=== PATIENT | male | born 1955 | race Caucasian/White ===

== ENCOUNTER 2017-04-17 11:35 | Emergency (ER) | payer BC ==
[~2017-04-17] VITALS: Ht 190.5 cm; Wt 85.0 kg
[~2017-04-17 11:35] MED LIST: ASCA500 PO; BIOTIN; MULT-506 PO; PSEU30TA20 PO
[2017-04-17 11:38] VITALS: Ht 190.5 cm; Wt 85.0 kg
[2017-04-17] MEDS ORDERED: TRAMADOL HCL 50 MG TAB PO STA (11:55)
[2017-04-17] MEDS ORDERED: SODIUM CHLORIDE 0.9% 1000ML 1,000 ML IV STA (11:55)
[2017-04-17] MEDS ORDERED: DiphenhydrAMINE HCL 50 MG/ML VIAL IV STA (11:55)
[2017-04-17] MEDS ORDERED: DEXAMETHASONE SOD INJ 4 MG/ML VIAL IV STA (11:55)
[2017-04-17 12:20] LABS: BASO % 0.2 %; BASO ABS # 0.02 K/uL (0-0.2); EOS % 0.1 %; EOS ABS # 0.01 K/uL (0-0.5); HEMATOCRIT 40.6 % (42-52); HEMOGLOBIN 14.6 g/dL (14.0-18.0); IG# 0.05 K/uL (0.00-0.02); LYMPH % 7.7 %; LYMPH ABS # 0.78 K/uL (1.2-3.4); MEAN CELL VOLUME 91.6 fL (80-100); MEAN PLATELET VOLUME 8.1 fL (7.4-10.4); MONO % 4.2 %; MONO ABS # 0.42 K/uL (0.11-0.59); NEUT % 87.3 %; NEUT ABS # 8.84 K/uL (1.4-6.5); PLATELET COUNT 374 K/uL (130-400); RED CELL DISTRIBUTION WIDTH CV 12.1 % (11.5-14.5); WHITE BLOOD COUNT 10.12 K/uL (4.8-10.8)
[2017-04-17 12:28] LABS: INR 1.1 (0.9-1.1); PTT PATIENT 28.1 SECONDS (21.0-31.0)
[2017-04-17 12:37] LABS: CREATININE 0.82 mg/dl (0.60-1.40); POTASSIUM 4.1 mmol/L (3.5-5.1)
--- NOTE | 2017-04-17 12:47 | DIAGNOSTIC IMAGING REPORT ---
CT SCAN OF THE BRAIN WITHOUT IV CONTRAST CLINICAL HISTORY: Headache. COMPARISON STUDY: No priors. TECHNIQUE: Unenhanced axial CT scan of the brain is performed from the vertex to the skull base. A dose lowering technique was utilized adhering to the principles of ALARA. CT DOSE: 1010.59 mGycm FINDINGS: Brain parenchyma: The brain parenchyma is normal in appearance. There is no hemorrhage, mass effect, or evidence of acute territorial ischemia by CT criteria. Lemos-white matter is preserved. No extra-axial fluid collection is seen. Ventricles, sulci, cisterns: Normal in configuration. Intracranial vasculature: The visualized intracranial vasculature at the skull base is normal in appearance. Calvarium: Unremarkable. Sinuses and mastoids: Mucosal thickening is seen within the maxillary antra and the right ethmoid sinuses. The mastoid air cells are well pneumatized. Orbits: The bony orbits are grossly intact. IMPRESSION: There is no hemorrhage, mass effect, or evidence of acute territorial ischemia by CT criteria. Electronically signed by: Chirag Cisneros M.D. 04/17/2017 12:45 PM Dictated Date/Time: 04/17/2017 12:44 PM
[2017-04-17] MEDS ORDERED: NAPR1TAB9 PO (12:56)
[2017-04-17] MEDS ORDERED: PROM5SUP2 PR (12:56)
[2017-04-17] MEDS ORDERED: PSEU30TA64 PO (12:56)
[2017-04-17] MEDS ORDERED: IBUP-1050 PO (12:56)
[2017-04-17] MEDS ORDERED: KETOROLAC TROMETHAMINE 30 MG/ML VIAL IV STA (13:34)
[2017-04-17] MEDS ORDERED: MoRPHine SULFATE 4 MG/ML 1 ML CARP\\VIAL IV STA ×2 (13:34→14:02)
--- NOTE | 2017-04-17 13:34 | DIAGNOSTIC IMAGING REPORT ---
CHEST ONE VIEW PORTABLE HISTORY: 61 years-old Male NEW ONSET SEVERE WEEKS, H/O IRREGULAR HEART RATE acute severe headache COMPARISON: None available TECHNIQUE: Portable AP view of the chest FINDINGS: Cardiomediastinal and hilar silhouettes are within normal limits. No pneumothorax, pleural effusion, focal airspace consolidation or overt pulmonary edema. The bones of the chest appear grossly intact. IMPRESSION: No acute process. The above report was generated using voice recognition software. It may contain grammatical, syntax or spelling errors. Electronically signed by: Juan Carlos Luevano M.D. 04/17/2017 1:32 PM Dictated Date/Time: 04/17/2017 1:32 PM
[2017-04-17] MEDS ORDERED: ACET300T3 PO (14:05)
--- NOTE | 2017-04-17 14:19 | EMERGENCY ROOM VISIT NOTE ---
History First contact with patient: 11:42 Chief Complaint: HEADACHE Stated Complaint: SEVERE HEADACHE SINCE 2 AM History of Present Illness The patient is a 61 year old male who presents to the Emergency Room with complaints of a severe headache. The patient reports that he awoke at 2 AM with a headache. He denied any headache prior to going to bed. The patient reports that he has had a cold for the past week with mild sinus congestion and cough; however, he reports that his symptoms are improving. The patient denies any recent fevers or chills, neck pain or back pain. His headache is not worsened with movement of the neck. He denies any photophobia or visual disturbance. He does report mild nausea. He denies any history of chronic headaches or migraines. His daughter does have a history of migraines. The patient used a Phenergan suppository at 8 AM without any relief. He also took ibuprofen and naproxen without relief of his discomfort. The patient reports notable nausea on the ride to the emergency department, but now reports minimal nausea. The headache is constant with occasional throbbing sensation. The patient denies any recent head injury. He does spend some time outdoors, and has had tick bites in the past. He currently rates his headache an 8 out of 10. The patient does report that he occasionally experiences palpitations. He did recently see a ranch cook who performed a stress test and indicated that everything appeared normal. He denies any recent chest pain or shortness of breath. Review of Systems HEENT: Denies dizziness, visual problems, hearing loss, tinnitus. Denies difficulty swallowing or oral lesions. PULMONARY: Denies cough, shortness of breath, sputum production or hemoptysis. CARDIOVASCULAR: Denies chest pain, dyspnea on exertion, orthopnea or peripheral edema. The patient does report occasional palpitations. GASTROINTESTINAL: Denies diarrhea, constipation, vomiting, or abdominal pain. GENITOURINARY: Denies dysuria, frequency, urgency or nocturia. NEUROLOGIC: Denies history of epilepsy, CVA, TIA or chronic headaches. MUSCULOSKELETAL: Denies history of joint tenderness/swelling. SKIN: Denies rashes or lesions. PSYCHIATRIC: Denies history of depression or mental illness. ENDOCRINE: Denies history of diabetes or thyroid disorders. Past Medical/Surgical History Medical Problems: (1) Cardiac Dysrhythmia Nos Surgical Problems: (1) Unilat Inguinal Hernia Family History Unremarkable Social History Smoking Status: Never Smoker Alcohol Use: occasionally Marital Status: Housing Status: lives with family Occupation Status: employed Current/Historical Medications Scheduled Pseudoephedrine Hcl (Sudafed), 30 MG PO PRN Scheduled PRN Acetaminophen/Codeine (Tylenol W/Codeine #3), 1-2 TABS PO q4-6h PRN for Pain Ibuprofen (Advil), 200-600 MG PO Q4H PRN for Pain Naproxen (Aleve), 220 MG PO for Pain Promethazine (Phenergan Suppository), 12.5 MG CA for Nausea Physical Exam Vital Signs Date Time Temp Pulse Resp B/P (MAP) Pulse Ox O2 Delivery O2 Flow Rate FiO2 04/17/17 13:54 36.5 76 18 143/77 100 Room Air 04/17/17 13:22 36.5 76 18 148/78 100 Room Air 04/17/17 12:56 77 04/17/17 12:53 77 18 141/75 100 Room Air 04/17/17 11:38 36.5 90 17 156/90 100 Room Air Physical Exam CONSTITUTIONAL: Healthy and well nourished. Alert and oriented X 3 with positive affect. Patient appears in moderate discomfort from his headache. HEENT: Normocephalic, atraumatic. Pupils equal, round and reactive. Ears and nares are clear without air-fluid levels or serous/purulent effusion of the middle years. No rhinorrhea noted. No proptosis or nystagmus. Funduscopic exam is normal without any photophobia noted. NECK: Full active range of motion without discomfort. No JVD or carotid bruits. No nuchal rigidity. Negative Kernig's, negative Brudzinski sign. RESPIRATORY: Clear to auscultation bilaterally with no wheezing, crackles, rhonchi or stridor. CARDIOVASCULAR: Regular rate and rhythm with no murmurs, rubs or gallops. GASTROINTESTINAL: Bowel sounds present in all quadrants. Soft and nontender to palpation. MUSCULOSKELETAL: Full range of motion of all joints without discomfort. Equal hand catheterization laboratory technician bilaterally. INTEGUMENTARY: No rash or other significant dermatologic conditions noted. NEUROLOGIC: Cranial nerves II-XII grossly intact. No focal neurologic deficits noted. No ataxia with ambulation. Negative pronator drift. Upper and lower extremities are sensory intact. Medical Decision & Procedures ER Provider Diagnostic Interpretation: My interpretation of an ECG shows a normal sinus rhythm without ST elevation. Computer reading suggest an incomplete right bundle dayday block and age indeterminate septal infarct; however, comparison with an ECG of 09/19/10 not show any other acute changes. My interpretation of a portable chest x-ray does not show any consolidations, pneumothorax or significant cardiac prominence. Radiologist report is as follows: CHEST ONE VIEW PORTABLE HISTORY: 61 years-old Male NEW ONSET SEVERE WEEKS, H/O IRREGULAR HEART RATE acute severe headache COMPARISON: None available TECHNIQUE: Portable AP view of the chest FINDINGS: Cardiomediastinal and hilar silhouettes are within normal limits. No pneumothorax, pleural effusion, focal airspace consolidation or overt pulmonary edema. The bones of the chest appear grossly intact. IMPRESSION: No acute process. Noncontrast CT of the head does show some sinus mucosal thickening, otherwise no other acute territorial infarcts, intracranial bleed, midline shift or mass effect noted. Radiologist report is as follows: CT SCAN OF THE BRAIN WITHOUT IV CONTRAST CLINICAL HISTORY: Headache. COMPARISON STUDY: No priors. TECHNIQUE: Unenhanced axial CT scan of the brain is performed from the vertex to the skull base. A dose lowering technique was utilized adhering to the principles of ALARA. CT DOSE: 1010.59 mGycm FINDINGS: Brain parenchyma: The brain parenchyma is normal in appearance. There is no hemorrhage, mass effect, or evidence of acute territorial ischemia by CT criteria. Lemos-white matter is preserved. No extra-axial fluid collection is seen. Ventricles, sulci, cisterns: Normal in configuration. Intracranial vasculature: The visualized intracranial vasculature at the skull base is normal in appearance. Calvarium: Unremarkable. Sinuses and mastoids: Mucosal thickening is seen within the maxillary antra and the right ethmoid sinuses. The mastoid air cells are well pneumatized. Orbits: The bony orbits are grossly intact. IMPRESSION: There is no hemorrhage, mass effect, or evidence of acute territorial ischemia by CT criteria. Laboratory Results 04/17/17 12:02 Red Blood Count 4.43, Mean Corpuscular Volume 91.6, Mean Corpuscular Hemoglobin 33.0, Mean Corpuscular Hemoglobin Concent 36.0, Mean Platelet Volume 8.1, Neutrophils (%) (Auto) 87.3, Lymphocytes (%) (Auto) 7.7, Monocytes (%) (Auto) 4.2, Eosinophils (%) (Auto) 0.1, Basophils (%) (Auto) 0.2, Neutrophils # (Auto) 8.84, Lymphocytes # (Auto) 0.78, Monocytes # (Auto) 0.42, Eosinophils # (Auto) 0.01, Basophils # (Auto) 0.02 04/17/17 12:02 Test 04/17/17 12:02 04/17/17 12:10 White Blood Count 10.12 K/uL (4.8-10.8) Red Blood Count 4.43 M/uL (4.7-6.1) Hemoglobin 14.6 g/dL (14.0-18.0) Hematocrit 40.6 % (42-52) Mean Corpuscular Volume 91.6 fL (80-100) Mean Corpuscular Hemoglobin 33.0 pg (25-34) Mean Corpuscular Hemoglobin Concent 36.0 g/dl (32-36) Platelet Count 374 K/uL (130-400) Mean Platelet Volume 8.1 fL (7.4-10.4) Neutrophils (%) (Auto) 87.3 % Lymphocytes (%) (Auto) 7.7 % Monocytes (%) (Auto) 4.2 % Eosinophils (%) (Auto) 0.1 % Basophils (%) (Auto) 0.2 % Neutrophils # (Auto) 8.84 K/uL (1.4-6.5) Lymphocytes # (Auto) 0.78 K/uL (1.2-3.4) Monocytes # (Auto) 0.42 K/uL (0.11-0.59) Eosinophils # (Auto) 0.01 K/uL (0-0.5) Basophils # (Auto) 0.02 K/uL (0-0.2) RDW Standard Deviation 41.0 fL (36.4-46.3) RDW Coefficient of Variation 12.1 % (11.5-14.5) Immature Granulocyte % (Auto) 0.5 % Immature Granulocyte # (Auto) 0.05 K/uL (0.00-0.02) Erythrocyte Sedimentation Rate 31 mm/hr (0-14) Prothrombin Time 11.5 SECONDS (9.0-12.0) Prothromb Time International Ratio 1.1 (0.9-1.1) Activated Partial Thromboplast Time 28.1 SECONDS (21.0-31.0) Partial Thromboplastin Ratio 1.1 Anion Gap 4.0 mmol/L (3-11) Est Creatinine Clear Calc Drug Dose 114.5 ml/min Estimated GFR () 111.4 Estimated GFR (Non- 96.1 BUN/Creatinine Ratio 25.8 (10-20) Calcium Level 9.0 mg/dl (8.5-10.1) Lyme Disease IgG Antibody NEG (NEG) Lyme Disease IgM Antibody NEG (NEG) Carboxyhemoglobin 0.0 % TH The above labs were reviewed. Lyme screen ankle oxyhemoglobin are negative. CBC is grossly normal. Electrolytes are also normal. Sedimentation rate is mildly elevated. Medications Administered Medications (Trade) Dose Ordered Sig/Janiya Route Start Time Stop Time Status Last Admin Dose Admin Sodium Chloride 1,000 ml @ 999 mls/hr Q1H1M STAT IV 04/17/17 11:55 04/17/17 12:55 DC 04/17/17 12:17 999 MLS/HR Dexamethasone Sodium Phosphate (Decadron Inj) 10 mg NOW STAT IV 04/17/17 11:55 04/17/17 12:09 DC 04/17/17 12:15 10 MG Diphenhydramine HCl (Benadryl Inj) 25 mg NOW STAT IV 04/17/17 11:55 04/17/17 12:09 DC 04/17/17 12:14 25 MG Tramadol HCl (Ultram Tab) 50 mg NOW STAT PO 04/17/17 11:55 04/17/17 12:09 DC 04/17/17 12:14 50 MG Morphine Sulfate (MoRPHine SULFATE INJ) 4 mg NOW STAT IV 04/17/17 13:34 04/17/17 13:35 DC 04/17/17 13:45 4 MG Ketorolac Tromethamine (Toradol Inj) 30 mg NOW STAT IV 04/17/17 13:34 04/17/17 13:35 DC 04/17/17 13:44 30 MG ED Course Patient history and physical exam were performed. Nurse's notes were reviewed. Vital signs were reviewed, showing an initial elevated blood pressure of 156/ 90. The patient is afebrile and with normal heart rate. IV access was established, and labs were drawn. The patient was hydrated with a liter normal saline, and was initially administered IV Decadron and Benadryl. He was also administered Ultram 50 mg orally. ECG and portable chest x-ray were grossly normal. Noncontrast CT of the head does shows some sinus mucosal thickening without any consolidations. Review of labs did not show any significant findings. Sedimentation rate, Lyme screen and other labs were grossly normal. Upon reevaluation, the patient still had a persistent headache rated an 8 out of 10. He was then administered IV morphine and Toradol. This reduced his headache to a 5 out of 10. Prior to discharge, the patient was administered an additional morphine 4 mg IVP for a total of morphine 8 mg while in the emergency department. Because the patient has never had a prior history of headaches, I did discuss performing a lumbar puncture. It is noted that the patient does not have any meningeal signs, however I did discuss the possibility of a subarachnoid hemorrhage. The patient deferred LP procedure, and felt well enough for discharge. The patient reports that he will return with any progressively worsening symptoms. The case was also discussed with Dr. Bynum, ED attending physician, who agrees with workup and plan of care. The patient was provided a prescription for Tylenol with Codeine at his request. He was also encouraged to continue with ibuprofen for additional relief. He was instructed to follow- up with his family doctor as needed for further management, and again was instructed to return to the emergency department for worsening symptoms. The patient was discharged with his , was happy with plan of care, and rated his discomfort a 4 out of 10. Medical Decision Patient presents with complaint of an acute and abrupt headache onset this morning. The patient has had a recent upper respiratory infection. CT scans does not show any evidence for intracranial bleed, mass effect or midline shift. He does have mild sinus mucosal thickening without evidence for opacification. Clinical exam and history are not consistent with migraine or meningitis. The patient has no significant vestibular symptoms. I do not suspect temporal arteritis. Lyme screen is also negative. [facility] Monitoring [facility] Search Results: patient reviewed within database, no issues identified Head Trauma GCS Score: 15 Medication Reconcilliation Current Medication List: was personally reviewed by me Blood Pressure Screening Patient's blood pressure: Normal blood pressure Impression Primary Impression: Headache Departure Information Prescriptions Acetaminophen/Codeine (Tylenol W/Codeine #3) 300 Mg/30 Mg Tab 1-2 TABS PO q4-6h Y for Pain, #20 TAB For Initial Treatment Prov: James Puckett PA 04/17/17 Referrals No Doctor, Assigned (PCP) Patient Instructions My [facility] Problem Qualifiers Primary Impression: Headache Headache type: unspecified Headache chronicity pattern: acute headache Intractability: not intractable Qualified Codes: R51 - Headache
[2017-04-17 14:30] VITALS: BP 140/81; PULSE 76; TEMP 36.5; O2SAT 100
== END 2017-04-17 14:35 | disposition home or self-care (01) ==
LOC: C.EDB 11:36
DX: R51 Headache (principal)